=== PATIENT | female | born 1965 | race Caucasian/White ===

== ENCOUNTER 2021-02-13 12:57 | Emergency (ER) | payer OTHER, SELFPAY ==
--- NOTE | 2021-02-13 | ECG_ITS ---
Test Reason : CP Blood Pressure : / mmHG Vent. Rate : 071 BPM Atrial Rate : 071 BPM P-R Int : 198 ms QRS Dur : 094 ms QT Int : 408 ms P-R-T Axes : 062 005 035 degrees QTc Int : 443 ms Normal sinus rhythm Normal ECG No previous ECGs available Referred By: Generic ED Physician Electronically Signed By:ORAL COONEY MD
--- NOTE | ~2021-02-13 | XR_ITS ---
EXAMINATION: XR CHEST CLINICAL INFORMATION: Chest pain COMPARISON: July 06, 2019 TECHNIQUE: AP portable view of the chest was obtained. FINDINGS: No significant abnormality is noted involving the heart, lungs, mediastinum, bony thorax or soft tissues. There is calcific tendinitis of the right shoulder. XR/XR chest 1V IMPRESSION: No acute disease.
[2021-02-13 13:36] VITALS: BP 142/74; PULSE 66; RESP 18; TEMP 36.1; O2SAT 98; BMI 50.3
--- NOTE | 2021-02-13 14:29 | ED_ITS ---
HPI - Chest Pain General Chief Complaint: Chest Pain Stated Complaint: chest pain Time Seen by Provider: 02/13/21 14:28 Source: patient and family (Spouse) Mode of arrival: ambulatory Limitations: no limitations History of Present Illness HPI narrative: 56-year-old female came in for evaluation of chest pain. Chest pain started 4-5 days ago, patient is localized in the mid chest, feels like heaviness in the mid chest, with no radiation, pain is worse with exertion, better when she rest, pain is associated with numbness in left hand, no shortness of breath, no coughing, no chest trauma, no recent travel, no lower extremity swelling or tenderness. Related Data Allergies Allergy/AdvReac Type Severity Reaction Status Date / Time codeine [CODEINE] Allergy Intermediate PASSED Unverified 12/29/19 15:10 OUT , blacked out oxycodone [Percocet] Allergy Unknown Verified 05/05/13 00:00 acetaminophen [From PERCOCET] AdvReac Intermediate VOMITING Unverified 12/29/19 15:10 Codeine Sulfate Allergy Unknown Uncoded 05/05/13 00:00 flu shot Allergy Unknown vomiting Uncoded 05/05/13 00:00 and severe diarrhea imitrex Allergy Unknown Uncoded 05/05/13 00:00 LOCAL ANESTHETIC Allergy Unknown UNKNOWN. Uncoded 12/29/19 15:10 From PERCOCET AdvReac Intermediate VOMITING Uncoded 12/29/19 15:10 Review of Systems Review of Systems: All other systems are reviewed and are negative Constitutional: Reports as per HPI and Reports no additional constitutional complaints Eyes: Reports as per HPI and Reports no additional eye complaints Reports system reviewed and no additional complaints, except as documented Cardiovascular: Reports as per HPI and Reports no additional cardiovascular complaints Respiratory: Reports as per HPI and Reports no additional respiratory complaints Gastrointestinal: Reports as per HPI and Reports no additional gastrointestinal complaints Genitourinary: Reports no additional female genitourinary complaints Musculoskeletal: Reports no additional musculoskeletal complaints Skin/Breast: Reports system reviewed and no additional complaints, except as docu Psychiatric: Reports no additional psychiatric complaints Endocrine: Reports no additional endocrine complaints Hematologic/Lymphatic: Reports no additional hematologic/lymphatic complaints Allergic/Immunologic: Reports no additional allergic/immunologic complaints Reports system reviewed and no additional complaints, except as documented and Reports Abnormal speech present [facility] Social History Social History Patient Tobacco Use Status: Current everyday Tobacco user Advance Directives: No Advance Directives Information Provided: No Physical Exam 2 Vital Signs: Vital Signs: Last Vital Signs Temp 97 F 02/13/21 13:36 Pulse 66 02/13/21 13:36 Resp 18 02/13/21 13:36 BP 142/74 H 02/13/21 13:36 Pulse Ox 98 02/13/21 13:36 Body Mass Index 50.3 Vital signs have been reviewed as appeared to be correct. Blood pressure normal. Heart rate normal. Respiration rate normal. Temperature normal. Oxygen saturation normal. Appearance: Alert. Oriented X3. No acute distress. Head: Normal external exam. Normocephalic. Atraumatic. No Pool signs noted. No raccoon eyes noted Eyes: PERRLA. EOMI. Conjunctiva and sclera normal. Eyelids normal. ENT: TM's Normal. Pharynx normal. Uvula midline. Moist mucous membranes. No trismus noted. No drooling noted. No muffled voice noted. Neck: Normal inspection. Neck supple. FROM. No adenopathy. Thyroid Normal. No meningeal signs. No neck mass noted. CVS: Normal heart rate and rhythm. Heart sound normal. No murmurs noted. Pulses normal throughout. Respiratory: No respiratory distress. Painless inspiration. Breath sounds normal. No wheezes/rales/rhonchi noted. Chest nontender. No accessory muscle usage noted or decreased air movement noted. Abdomen: Soft and nontender. Bowel sounds normal in all 4 quadrants. No distention noted. No organomegaly noted. No visible injury noted. Back: No CVA tenderness. Full range of motion noted. Skin: Skin warm and dry. Normal skin color. Normal skin turgor. No rashes/lesions/lacerations noted. Extremities: No lower extremity edema. Extremities exhibit normal range of motion. Extremities nontender. Neuro: Oriented X 3. Cranial nerve exam: II-XII are grossly intact No motor deficit. No sensory deficit. Reflexes normal. Course Course Course Narrative: Assessment and plan. 56-year-old female came in for chest pain for 4 days, EKG, troponin, D-dimer are all are unremarkable, patient with HEART score of 1, patient has no chest pain or shortness breath now will discharge to follow-up with PCP to [facility] - Chest Pain Medical Records Data Attestation: I reviewed the patient's medical records. Lab Data Attestation: I reviewed the patient's lab results. Result diagrams: 02/13/21 14:33 02/13/21 14:33 Labs: Lab Results 02/13/21 02/13/21 02/13/21 Range/Units 14:33 14:33 14:33 WBC 6.6 (4.8-10.8) X10*3/uL RBC 3.68 L (4.20-5.50) X10*6/uL Hgb 12.2 (12.0-16.0) g/dl Hct 36.1 L (37.0-47.0) % MCV 98.1 H (80.0-98.0) fL MCH 33.2 H (27.0-33.0) pg MCHC 33.8 (31.0-35.0) g/dl RDW 12.2 (11.0-16.0) % Plt Count 236 (160-400) X10*3/uL MPV 8.8 L (9.4-12.3) fL Immature Gran % (Auto) 0.2 (0.0-0.4) % Neut % (Auto) 48.3 (45-73) % Lymph % (Auto) 38.1 (20-40) % [place] % (Auto) 5.4 (2-11) % Eos % (Auto) 7.4 H (0-4) % Baso % (Auto) 0.6 (0-2) % Lymph # (Auto) 2.5 (1.2-4.9) X10*3/uL [place] # (Auto) 0.4 (0.1-1.2) X10*3/uL Eos # (Auto) 0.5 H (0.0-0.4) X10*3/uL Baso # (Auto) 0.0 (0.0-0.2) X10*3/uL Abs Immat Gran (auto) 0.01 (0.00-0.03) X10*3/uL Absolute Neuts (auto) 3.21 (2.0-8.3) x10*3/uL Absolute Nucleated RBC 0.000 (0.0-0.012) X10*3/uL Nucleated RBC % (auto) 0.0 (0.0-0.2) /100WBC D-Dimer < 200 NG/ML Sodium 140 (135-145) mmol/L Potassium 4.0 (3.3-5.1) mmol/L Chloride 106 (96-108) mmol/L Carbon Dioxide 25 (22-29) mmol/L Anion Gap 13 (12-20) BUN 17 H (9-16) mg/dL Creatinine 0.83 (0.5-1.4) mg/dL Estim Creat Clear Calc 88.5 Estimated GFR > 60 Random Glucose 92 (60-115) mg/dL Calcium 9.7 (8.4-10.2) mg/dL Total Bilirubin 0.2 (0.0-1.0) mg/dL Direct Bilirubin < 0.2 (0.0-0.5) mg/dL AST 18 (5-31) U/L ALT 18 (0-31) U/L Alkaline Phosphatase 82 (39-117) U/L Troponin I High Sens (<3.5-17.0) ng/L Total Protein 7.4 (6.5-8.0) g/dL Albumin 4.9 (3.5-5.0) g/dL Lipase 25 (8-78) U/L 02/13/21 Range/Units 14:33 WBC (4.8-10.8) X10*3/uL RBC (4.20-5.50) X10*6/uL Hgb (12.0-16.0) g/dl Hct (37.0-47.0) % MCV (80.0-98.0) fL MCH (27.0-33.0) pg MCHC (31.0-35.0) g/dl RDW (11.0-16.0) % Plt Count (160-400) X10*3/uL MPV (9.4-12.3) fL Immature Gran % (Auto) (0.0-0.4) % Neut % (Auto) (45-73) % Lymph % (Auto) (20-40) % [place] % (Auto) (2-11) % Eos % (Auto) (0-4) % Baso % (Auto) (0-2) % Lymph # (Auto) (1.2-4.9) X10*3/uL [place] # (Auto) (0.1-1.2) X10*3/uL Eos # (Auto) (0.0-0.4) X10*3/uL Baso # (Auto) (0.0-0.2) X10*3/uL Abs Immat Gran (auto) (0.00-0.03) X10*3/uL Absolute Neuts (auto) (2.0-8.3) x10*3/uL Absolute Nucleated RBC (0.0-0.012) X10*3/uL Nucleated RBC % (auto) (0.0-0.2) /100WBC D-Dimer NG/ML Sodium (135-145) mmol/L Potassium (3.3-5.1) mmol/L Chloride (96-108) mmol/L Carbon Dioxide (22-29) mmol/L Anion Gap (12-20) BUN (9-16) mg/dL Creatinine (0.5-1.4) mg/dL Estim Creat Clear Calc Estimated GFR Random Glucose (60-115) mg/dL Calcium (8.4-10.2) mg/dL Total Bilirubin (0.0-1.0) mg/dL Direct Bilirubin (0.0-0.5) mg/dL AST (5-31) U/L ALT (0-31) U/L Alkaline Phosphatase (39-117) U/L Troponin I High Sens < 3.5 (<3.5-17.0) ng/L Total Protein (6.5-8.0) g/dL Albumin (3.5-5.0) g/dL Lipase (8-78) U/L Imaging Data Chest x-ray: Radiologist's impression: No acute disease. ECG Data ECG #1: Interpretation: Normal sinus rhythm at 71 beats per minutes, left axis deviation, normal intervals, no ST-T changes. Discharge Plan Discharge Clinical Impression: Atypical chest pain Patient Disposition: Home, Self-Care Instructions: Chest Pain (ED) Referrals: Jn Olson PA [Primary Care Provider] - 2 days
[2021-02-13 14:36] LABS: MANUAL DIFF FLAG NO
[2021-02-13 14:38] LABS: Basophils Percent Auto 0.6 % (0-2); Eosinophils Absolute Auto 0.5 X10*3/uL (0.0-0.4); Eosinophils Percent Auto 7.4 % (0-4); Hematocrit 36.1 % (37.0-47.0); Hemoglobin 12.2 g/dl (12.0-16.0); Imm Gran Abs Auto 0.01 X10*3/uL (0.00-0.03); Imm Gran Pct Auto 0.2 % (0.0-0.4); Lymphocytes Absolute Auto 2.5 X10*3/uL (1.2-4.9); Lymphocytes Percent Auto 38.1 % (20-40); Mean Corpuscular HGB Conc 33.8 g/dl (31.0-35.0); Mean Corpuscular Hemoglobin 33.2 pg (27.0-33.0); Mean Corpuscular Volume 98.1 fL (80.0-98.0); Mean Platelet Volume 8.8 fL (9.4-12.3); Monocytes Absolute Auto 0.4 X10*3/uL (0.1-1.2); Monocytes Percent Auto 5.4 % (2-11); Neutrophils Absolute Auto 3.21 x10*3/uL (2.0-8.3); Neutrophils Percent Auto 48.3 % (45-73); Platelet Count 236 X10*3/uL (160-400); Red Blood Count 3.68 X10*6/uL (4.20-5.50); Red Cell Distribution Width 12.2 % (11.0-16.0); White Blood Count 6.6 X10*3/uL (4.8-10.8)
[2021-02-13 14:53] LABS: Alanine Aminotransferase 18 U/L (0-31); Albumin Level 4.9 g/dL (3.5-5.0); Alkaline Phosphatase 82 U/L (39-117); Anion Gap 13 (12-20); Aspartate Amino Transferase 18 U/L (5-31); Bilirubin Direct < 0.2 mg/dL (0.0-0.5); Bilirubin Total 0.2 mg/dL (0.0-1.0); Blood Urea Nitrogen 17 mg/dL (9-16); Calcium 9.7 mg/dL (8.4-10.2); Carbon Dioxide 25 mmol/L (22-29); Chloride 106 mmol/L (96-108); Creatinine Clr Calc Pharmacy 88.5; Estimated Glomerular Filt Rate > 60; Glucose Random 92 mg/dL (60-115); Lipase 25 U/L (8-78); Sodium 140 mmol/L (135-145); Total Protein 7.4 g/dL (6.5-8.0)
[2021-02-13 14:57] LABS: Troponin-I High Sensitivity < 3.5 ng/L (<3.5-17.0)
[2021-02-13 14:59] LABS: D Dimer < 200 NG/ML
== END 2021-02-13 15:26 | disposition home or self-care (01) ==
PROVIDERS: Emergency Provider Emergency Medicine; PCP Physician Assistant Medical
DX: R07.89 Other chest pain (principal)
CPT/HCPCS: 36415; 71045; 80048; 80076; 83690; 84484; 85025; 85379; 93005; 99283; 99285

== ENCOUNTER 2022-12-05 12:30 | Outpatient (AMB) | payer OTHER, SELFPAY ==
--- NOTE | 2022-12-05 12:38 | MHC.OFFWIV ---
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 Pt states no falls or injuries. Patient Tobacco Use Status: Current everyday Tobacco user Allergies codeine [CODEINE] Allergy (Intermediate, Unverified 12/05/22 12:59) PASSED OUT , blacked out oxycodone [Percocet] Allergy (Unknown, Verified 12/05/22 12:59) Anxiety acetaminophen [From PERCOCET] Adverse Reaction (Intermediate, Unverified 12/05/22 12:59) VOMITING Codeine Sulfate Allergy (Unknown, Uncoded 12/05/22 12:59) Anxiety flu shot Allergy (Unknown, Uncoded 12/05/22 12:59) vomiting and severe diarrhea imitrex Allergy (Unknown, Uncoded 12/05/22 12:59) Anxiety LOCAL ANESTHETIC Allergy (Unknown, Uncoded 12/05/22 12:59) UNKNOWN. 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 Patient is reporting pain in the right leg and not the left. Symptoms started a few days ago and she is experiencing sharp pains in the right thigh. Does not recall any fall or injury. 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 [facility] Social History Patient Tobacco Use Status: Current everyday Tobacco user Physical Exam Vital Signs: Last Vital Signs Temp 96.7 F L 12/05/22 12:40 Pulse 75 12/05/22 12:40 BP 116/70 12/05/22 12:40 Pulse Ox 98 12/05/22 12:40 Oxygen Delivery Method Room Air 12/05/22 12:40 BMI result Body Mass Index 33.0 Const General: cooperative and healthy appearing Nutritional Appearance: well nourished Orientation/consciousness: patient oriented x3 Limitations: no limitations HEENT Head: Yes normal to inspection Eyes General: appearance normal, both eyes and all related structures Neck Neck: Yes normal visual inspection Chest Chest palpation & inspection: normal palpation of entire chest wall Resp Effort & Inspection: normal respiratory effort Neuro General: patient oriented x3 Extrem Other: Right hip: Tenderness over the greater trochanter. Full range of motion at the hip. Assessment & Plan Assessment & Plan (1) Trochanteric bursitis, right hip: Code(s): M70.61 - Trochanteric bursitis, right hip Plan: Meloxicam called in. Patient was advised rest of the extremity. Medications: New meloxicam 15 mg PO DAILY 14 tabs 0RF Coding Level of Care Code New Pt Level 3 (73750) Diagnoses Trochanteric bursitis, right hip M70.61
[2022-12-05 12:40] VITALS: BP 116/70; PULSE 75; TEMP 35.9; O2SAT 98; BMI 33.0
== END 2022-12-05 13:37 | disposition home or self-care (01) ==
PROVIDERS: PCP Physician Assistant Medical; Visit Provider Internal Medicine
DX: M70.61 Trochanteric bursitis, right hip (principal)
CPT/HCPCS: 99203

== ENCOUNTER 2024-08-12 16:34 | Emergency (ER) | payer OTHER, SELFPAY ==
--- NOTE | ~2024-08-12 | XR_ITS ---
CLINICAL HISTORY: chest pain 1 view chest x-ray Comparison: None Findings: No consolidation, pleural effusion or pneumothorax. Normal size heart. No acute fracture. IMPRESSION: 1. No acute findings. This document has been electronically signed by: Lucille Rosenbaum DO on 08/12/2024 17:41:56
[2024-08-12 16:38] VITALS: BP 117/76; BP 123/67; PULSE 77; PULSE 84; RESP 18; TEMP 36.8; O2SAT 98; O2SAT 99; BMI 30.3
--- NOTE | 2024-08-12 16:38 | ECG_ITS ---
Test Reason : CP Blood Pressure : */* mmHG Vent. Rate : 76 BPM Atrial Rate : 76 BPM P-R Int : 196 ms QRS Dur : 78 ms QT Int : 406 ms P-R-T Axes : 71 -11 32 degrees QTcB Int : 456 ms Normal sinus rhythm Low voltage QRS Septal infarct , age undetermined Abnormal ECG When compared with ECG of 13-Feb-2021 13:43, Septal infarct is now Present Referred By: Generic ED Physician Electronically Signed By: Tai Lima
[2024-08-12 16:51] LABS: MANUAL DIFF FLAG NO
[2024-08-12 16:55] LABS: Basophils Absolute Auto 0.1 X10*3/uL (0.0-0.2); Basophils Percent Auto 1.2 % (0-2); Eosinophils Absolute Auto 0.3 X10*3/uL (0.0-0.4); Eosinophils Percent Auto 5.6 % (0-4); Hematocrit 36.1 % (37.0-47.0); Hemoglobin 12.5 g/dl (12.0-16.0); Imm Gran Abs Auto 0.01 X10*3/uL (0.00-0.03); Imm Gran Pct Auto 0.2 % (0.0-0.4); Lymphocytes Absolute Auto 2.6 X10*3/uL (1.2-4.9); Lymphocytes Percent Auto 44.2 % (20-40); Mean Corpuscular HGB Conc 34.6 g/dl (31.0-35.0); Mean Corpuscular Hemoglobin 32.7 pg (27.0-33.0); Mean Corpuscular Volume 94.5 fL (80.0-98.0); Mean Platelet Volume 8.6 fL (9.4-12.3); Monocytes Absolute Auto 0.4 X10*3/uL (0.1-1.2); Monocytes Percent Auto 5.9 % (2-11); Neutrophils Absolute Auto 2.6 x10*3/uL (2.0-8.3); Neutrophils Percent Auto 42.9 % (45-73); Platelet Count 233 X10*3/uL (160-400); Red Blood Count 3.82 X10*6/uL (4.20-5.50); Red Cell Distribution Width 12.7 % (11.0-16.0); White Blood Count 5.9 X10*3/uL (4.8-10.8)
[2024-08-12 17:12] LABS: Alanine Aminotransferase 16 U/L (0-31); Albumin Level 4.1 g/dL (3.5-5.0); Alkaline Phosphatase 86 U/L (39-117); Anion Gap 13 (12-20); Aspartate Amino Transferase 23 U/L (5-31); Bilirubin Total 0.7 mg/dL (0.0-1.0); Blood Urea Nitrogen 12 mg/dL (9-16); Calcium 9.4 mg/dL (8.4-10.2); Carbon Dioxide 23 mmol/L (22-29); Chloride 106 mmol/L (96-108); Creatinine Clr Calc Pharmacy 76.8; Estimated Glomerular Filt Rate > 60; Glucose Random 85 mg/dL (60-115); Potassium 3.9 mmol/L (3.3-5.1); Sodium 138 mmol/L (135-145); Total Protein 6.4 g/dL (6.5-8.0)
[2024-08-12 17:31] LABS: Troponin-I High Sensitivity < 2.7 ng/L (<3.5-17.0)
--- NOTE | 2024-08-12 18:32 | ED_ITS ---
HPI - Chest Pain General Chief Complaint: Chest Pain Stated Complaint: chest pain for 8 hrs, crushing/fluttering feeling Time Seen by Provider: 08/12/24 18:32 History of Present Illness ED Provider: Edi MURO narrative: The patient is a 59-year-old woman. She is a smoker and she has a history of elevated cholesterol but she has no history of diabetes or hypertension. She says that several weeks ago she had an episode in which he experienced chest discomfort and an ambulance was called. At that time she had had chest discomfort for about 3 days. When the paramedics came her vital signs are unremarkable and she ultimately chose not to come to the hospital. She did not follow up with anybody. She says that she woke up this morning with chest pain that was very similar to the pain that she had had during the episode several weeks ago. She thought that it was bad heartburn. She went to work. 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 She went to an urgent care where she was referred to the emergency department. They called an ambulance. Paramedics administered 0.4 mg of sublingual nitro with resolution of her symptoms. The symptoms have not returned. She says the symptoms of chest discomfort were a nonpleuritic burning or pressure-like chest discomfort, slightly more in the left side. It was also associated with a fluttering sensation and a sense of some mild shortness of breath. No pain or swelling in her legs. No fever, sweats, chills. While she was having the pain she had some nausea but no vomiting. Her nausea has resolved as has her sense of shortness of breath and fluttering. Related Data Home Medications ?Medication ?Instructions ?Recorded ?Confirmed evolocumab 140 mg/mL subcutaneous 140 mg subcut Q2W 12/05/22 pen injector (Repatha SureClick) fluticasone propionate 115 2 puff inhalation BID 12/05/22 mcg-salmeterol 21 mcg/actuation HFA inhaler (Advair HFA) fluticasone propionate 50 1 spray intranasal DAILY 12/05/22 mcg/actuation nasal spray,suspension ramelteon 8 mg tablet (Rozerem) 8 mg PO BEDTIME 12/05/22 Previous Rx's ?Medication ?Instructions ?Recorded meloxicam 15 mg tablet 15 mg PO DAILY #14 tabs 12/05/22 Allergies Allergy/AdvReac Type Severity Reaction Status Date / Time codeine [CODEINE] Allergy Intermediate PASSED Verified 08/12/24 16:40 OUT , blacked out oxycodone [Percocet] Allergy Unknown Anxiety Verified 08/12/24 16:40 acetaminophen [From PERCOCET] AdvReac Intermediate VOMITING Verified 08/12/24 16:40 Codeine Sulfate Allergy Unknown Anxiety Uncoded 08/12/24 16:40 flu shot Allergy Unknown vomiting Uncoded 08/12/24 16:40 and severe diarrhea imitrex Allergy Unknown Anxiety Uncoded 08/12/24 16:40 LOCAL ANESTHETIC Allergy Unknown UNKNOWN. Uncoded 08/12/24 16:40 From PERCOCET AdvReac Intermediate VOMITING Uncoded 08/12/24 16:40 Review of Systems 2 Review of Systems: Yes all other systems are reviewed and are negative [facility] Social History Social History Patient Tobacco Use Status: Current everyday Tobacco user Advance Directives: No Advance Directives Information Provided: No Do you have a plan to hurt others: No Plan Physical Exam 2 Vital Signs: Vital Signs: Last Vital Signs Temp 98.0 F 08/12/24 19:19 Pulse 89 08/12/24 19:19 Resp 14 08/12/24 19:19 BP 113/72 08/12/24 19:19 Pulse Ox 96 08/12/24 19:19 O2 Del Method Room Air 08/12/24 19:19 BMI result Body Mass Index 30.3 Const: General: cooperative, healthy appearing, comfortable and no acute distress Orientation/consciousness: patient oriented x3 HEENT: Head: Yes normal to inspection Face and sinus: Yes normal facial exam Mouth: Normal oral and palatal mucosa present Eyes: General: appearance normal, both eyes and all related structures Neck: Neck: Yes normal visual inspection, Yes full ROM and Yes no JVD Resp: Effort & Inspection: normal respiratory effort Auscultation: clear to auscultation bilaterally Cardio: Rate: regular rate Rhythm: regular rhythm Heart sounds: S1 normal heart sound present and S2 normal heart sound present GI: Other: the abdomen was soft and nontender. Specifically there was no right upper quadrant tenderness. No Chin sign. Skin: Other: Skin is dry and unremarkable Neuro: General: patient oriented x3, gait normal, tone normal, moves all extremities, no focal motor deficits and CN's II-XI intact bilaterally Extrem: Other: no ankle edema, no calf swelling or tenderness, no asymmetry Medical Decision Making Medical Decision Making MDM Narrative: The patient is a 59-year-old woman. She has a history of smoking and elevated cholesterol but no history of diabetes or hypertension. No history of known heart disease. She comes to the emergency room after presenting to urgent care center with chest pain. The urgent care center called an ambulance and she was sent here. Paramedics administered a dose of nitroglycerin and there was resolution of her discomfort. She was pain-free at the time of arrival in the emergency room and at the time of my evaluation. She had been experiencing nonpleuritic a pressure-like chest pain since yesterday evening. She has certainly had continuous chest pressure from 7 or 8 AM this morning until this afternoon. she has an unremarkable EKG. She has 2 negative troponins. The patient was very eager to leave the emergency room and was in fact discharged prior to the results of the 2nd troponin. She did not want to stay in the emergency room because she said she had a special needs child to get back to. The patient says that she had a similar episode several weeks ago when she called an ambulance but declined ambulance transport. My overall impression is that this is probably non anginal pain given that she has so many hours of discomfort with undetectable troponins. I called the patient after her discharge to inform her that her 2nd troponin was normal. She was advised to contact her doctor on Thursday for a follow-up appointment to discuss this further or to return to the ER if worse. Lab Data 08/12/24 16:48 08/12/24 16:48 Labs: Lab Results 08/12/24 08/12/24 Range/Units 16:48 19:11 WBC 5.9 (4.8-10.8) X10*3/uL RBC 3.82 L (4.20-5.50) X10*6/uL Hgb 12.5 (12.0-16.0) g/dl Hct 36.1 L (37.0-47.0) % MCV 94.5 (80.0-98.0) fL MCH 32.7 (27.0-33.0) pg MCHC 34.6 (31.0-35.0) g/dl RDW 12.7 (11.0-16.0) % Plt Count 233 (160-400) X10*3/uL MPV 8.6 L (9.4-12.3) fL Immature Gran % (Auto) 0.2 (0.0-0.4) % Neut % (Auto) 42.9 L (45-73) % Lymph % (Auto) 44.2 H (20-40) % [place] % (Auto) 5.9 (2-11) % Eos % (Auto) 5.6 H (0-4) % Baso % (Auto) 1.2 (0-2) % Lymph # (Auto) 2.6 (1.2-4.9) X10*3/uL [place] # (Auto) 0.4 (0.1-1.2) X10*3/uL Eos # (Auto) 0.3 (0.0-0.4) X10*3/uL Baso # (Auto) 0.1 (0.0-0.2) X10*3/uL Abs Immat Gran (auto) 0.01 (0.00-0.03) X10*3/uL Absolute Neuts (auto) 2.6 (2.0-8.3) x10*3/uL Absolute Nucleated RBC 0.000 (0.0-0.012) X10*3/uL Nucleated RBC % (auto) 0.0 (0.0-0.2) /100WBC Sodium 138 (135-145) mmol/L Potassium 3.9 (3.3-5.1) mmol/L Chloride 106 (96-108) mmol/L Carbon Dioxide 23 (22-29) mmol/L Anion Gap 13 (12-20) BUN 12 (9-16) mg/dL Creatinine 0.69 (0.5-1.4) mg/dL Estim Creat Clear Calc 76.8 Estimated GFR > 60 Random Glucose 85 (60-115) mg/dL Calcium 9.4 (8.4-10.2) mg/dL Magnesium 2.0 (1.6-2.6) mg/dL Total Bilirubin 0.7 (0.0-1.0) mg/dL AST 23 (5-31) U/L ALT 16 (0-31) U/L Alkaline Phosphatase 86 (39-117) U/L Troponin I High Sens < 2.7 < 2.7 (<3.5-17.0) ng/L Total Protein 6.4 L (6.5-8.0) g/dL Albumin 4.1 (3.5-5.0) g/dL Independent Interpretation I performed an independent interpretation of an: EKG Interpretation: EKG at 16:54 shows normal sinus rhythm at 76 beats per minute. No definite acute ischemic changes. Discharge Plan Discharge Clinical Impression: Chest pain Patient Disposition: Home, Self-Care Instructions: Chest Pain (ED) Additional Instructions: Your testing so far in the emergency room is very reassuring from the point of view of whether your chest pain was a warning of a heart attack. Your initial troponin level (troponin is a marker of a heart attack) was normal. We have sent a 2nd troponin level to help confirm that your symptoms were not coming from your heart. I will call you if this result is abnormal. Assuming the troponin is fine please continue any regular medications. Please contact your regular doctor on Thursday to make a follow up appointment to discuss these episodes further. Return to the emergency room if you feel significantly worse. Prescriptions: No Action Repatha SureClick 140 mg/mL pen injector 140 mg subcut Q2W fluticasone propionate 50 mcg/actuation spray,suspension 1 spray intranasal DAILY fluticasone propion-salmeterol [Advair HFA] 115-21 mcg/actuation HFA aerosol inhaler 2 puff inhalation BID ramelteon [Rozerem] 8 mg tablet 8 mg PO BEDTIME meloxicam 15 mg tablet 15 mg PO DAILY Qty: 14 0RF Referrals: Jn Olson PA [Primary Care Provider] - (Chest pain) Interventions: ED Discharge Assessment Last Done: 08/12/24 19:19 Discharge Date/Time: 08/12/24 19:21 Print Language: Hungarian
[2024-08-12 19:19] VITALS: BP 113/72; PULSE 89; RESP 14; TEMP 36.7; O2SAT 96
[2024-08-12 19:35] LABS: Troponin-I High Sensitivity < 2.7 ng/L (<3.5-17.0)
== END 2024-08-12 19:21 | disposition home or self-care (01) ==
PROVIDERS: Emergency Provider Emergency Medicine; PCP Physician Assistant Medical
DX: R07.9 Chest pain, unspecified (principal); F17.200 Nicotine dependence, unspecified, uncomplicated; Z79.899 Other long term (current) drug therapy
CPT/HCPCS: 36415; 71045; 80053; 83735; 84484; 85025; 93005; 99283; 99284

== ENCOUNTER → 2024-08-12 16:38 | Outpatient (BNV) | payer OTHER, SELFPAY | PROVIDERS: Emergency Provider Emergency Medicine; PCP Physician Assistant Medical; Visit Provider Internal Medicine Cardiovascular Disease | DX: R94.31 Abnormal electrocardiogram [ECG] [EKG] (principal); R07.9 Chest pain, unspecified | CPT/HCPCS: 93010 ==

== ENCOUNTER → 2024-08-12 17:15 | Outpatient (BNV) | payer OTHER, SELFPAY | PROVIDERS: PCP Physician Assistant Medical; Visit Provider Radiology Diagnostic Radiology | DX: R07.9 Chest pain, unspecified (principal) | CPT/HCPCS: 71045 ==

== ENCOUNTER 2024-12-18 07:21 | Emergency (ER) | payer OTHER, SELFPAY ==
--- NOTE | ~2024-12-18 | CT_ITS ---
CLINICAL HISTORY: headache CT head without contrast Comparison: None provided Findings: No intra-axial mass, midline shift, hydrocephalus, or acute hemorrhage. There is no sinus or mastoid fluid. Right cataract surgery. Mild asymmetric prominence of the left superior ophthalmic vein of indeterminate significance/possibly incidental. No skull fracture. IMPRESSION: 1. No acute intracranial findings. This document has been electronically signed by: Rima Glass MD on 12/18/2024 10:19:20
[2024-12-18 07:25] VITALS: BP 118/76; PULSE 74; O2SAT 99
[2024-12-18 07:29] VITALS: BP 123/55; PULSE 72; RESP 20; TEMP 36.5; O2SAT 98; BMI 24.9
--- NOTE | 2024-12-18 07:31 | ECG_ITS ---
Test Reason : WEAKNESS Blood Pressure : */* mmHG Vent. Rate : 71 BPM Atrial Rate : 71 BPM P-R Int : 178 ms QRS Dur : 84 ms QT Int : 430 ms P-R-T Axes : 80 42 42 degrees QTcB Int : 467 ms Normal sinus rhythm Pulmonary disease pattern Abnormal ECG When compared with ECG of 12-Aug-2024 16:54, Criteria for Septal infarct are no longer Present Referred By: Ted Knapp Electronically Signed By: JH MA MD
--- NOTE | 2024-12-18 07:31 | ED_ITS ---
HPI - Headache General Chief Complaint: Dizziness Stated Complaint: NAUSEA/VOMTING,LUE NUMB THIS AM,H/O BRAIN TUMOR Time Seen by Provider: 12/18/24 07:29 Source: patient and EMS Mode of arrival: EMS Limitations: no limitations History of Present Illness ED Provider: HPI Narrative: 59-year-old woman reports history of schwannoma, denies history of headaches, states woke up with a significantly headache that was 10/10 on onset, reports dizziness, inability to really look with her eyes because it would make her nauseous, no trauma no fevers or chills, no IV drug use, smokes tobacco. No numbness in upper or lower extremities. Related Data Home Medications ?Medication ?Instructions ?Recorded ?Confirmed evolocumab 140 mg/mL subcutaneous 140 mg subcut Q2W pen injector (Repatha SureClick) fluticasone propionate 115 2 puff inhalation BID 12/05 mcg-salmeterol 21 mcg/actuation HFA inhaler (Advair HFA) fluticasone propionate 50 1 spray intranasal DAILY mcg/actuation nasal spray,suspension ramelteon 8 mg tablet (Rozerem) 8 mg PO BEDTIME Previous Rx's ?Medication ?Instructions ?Recorded meloxicam 15 mg tablet 15 mg PO DAILY #14 tabs 11/12 09/02 diazepam 2 mg tablet (Valium) 2 mg PO TID PRN spasms 2 days #6 12/18/24 tabs ondansetron HCl 4 mg tablet 4 mg PO Q8H PRN nausea and 12/18/24 vomiting 3 days #9 tabs Allergies Allergy/AdvReac Type Severity Reaction Status Date / Time codeine (CODEINE) Allergy Intermediate PASSED Verified 12/18/24 07:33 OUT , blacked out oxycodone (Percocet) Allergy Unknown Anxiety Verified 12/18/24 07:33 acetaminophen (From PERCOCET) AdvReac Intermediate VOMITING Verified 12/18/24 07:33 Codeine Sulfate Allergy Unknown Anxiety Uncoded 12/18/24 07:33 flu shot Allergy Unknown vomiting Uncoded 12/18/24 07:33 and severe diarrhea imitrex Allergy Unknown Anxiety Uncoded 12/18/24 07:33 LOCAL ANESTHETIC Allergy Unknown UNKNOWN. Uncoded 12/18/24 07:33 From PERCOCET AdvReac Intermediate VOMITING Uncoded 12/18/24 07:33 Review of Systems 2 Constitutional: Constitutional: Reports as per [facility] Social History Social History Patient Tobacco Use Status: Current everyday Tobacco user Smoked in Last 30 Days: Yes Use of substances other than those prescribed or required for medical reasons: No Advance Directives: No Advance Directives Information Provided: Yes Do you have a plan to hurt others: No Plan Physical Exam 2 Vital Signs: Vital Signs: Last Vital Signs Temp 97.7 F 12/18/24 07:34 Pulse 68 12/18/24 10:19 Resp 16 12/18/24 10:19 BP 107/44 L 12/18/24 10:19 Pulse Ox 95 12/18/24 10:19 O2 Del Method Room Air 12/18/24 10:19 BMI result Body Mass Index 24.9 Const: Other: * Gen: ?Patient is in discomfort * HEENT: Pupils appear to be 2 mm, reactive, patient was not able to participate in nystagmus checking as she would get very nauseous * Neck: Supple, no LAD, no meningismus * CV: RRR, no obvious murmurs appreciated * Resp: ?No wheezing rales rhonchi no stridor moving air well * Abd: ?Bowel sounds are present, no tenderness no rebound no rigidity * MSK: FROM, strength 5/5 all extremities * Skin: Warm, dry, intact, * Neuro: ?Alert and oriented x3, moving upper and lower extremities symmetrically, no obvious facial asymmetry noted, generally at bedside no sensory deficits bilateral upper or lower extremities Medications Administered Discontinued Medications Generic Name Dose Route Start Last Admin Trade Name Freq PRN Reason Stop Dose Admin Diazepam 5 mg 12/18/24 07:31 12/18/24 07:50 Diazepam 10 Mg/2 Ml Cartridge IVPUSH 12/18/24 07:32 5 mg STAT STA Administration Sodium Chloride 1,000 mls @ 999 mls/hr 12/18/24 07:45 12/18/24 09:30 Ns IV 12/18/24 08:45 Infused .Q1H1M KATERYNA Infusion Acetaminophen 1,000 mg in 100 mls @ 400 mls/hr 12/18/24 07:31 12/18/24 08:05 Ofirmev IV 12/18/24 07:45 Infused ONCE ONE Infusion Ketorolac Tromethamine 15 mg 12/18/24 09:16 12/18/24 09:39 Ketorolac Tromethamine 15 Mg/Ml Vial IVPUSH 12/18/24 09:17 15 mg ONCE ONE Administration Methylprednisolone Sodium Succinate 125 mg 12/18/24 07:31 12/18/24 07:50 Methylprednisolone Sod Succ 125 Mg/2 Ml Vial IVPUSH 12/18/24 07:32 125 mg ONCE ONE Administration Ondansetron HCl 4 mg 12/18/24 07:31 12/18/24 07:54 Ondansetron Hcl 4 Mg/2 Ml Vial IVPUSH 12/18/24 07:32 4 mg ONCE ONE Administration Scopolamine 1.5 mg 12/18/24 07:31 12/18/24 07:53 Scopolamine 1.5 Mg Patch.Td.3 EAR-BEHIND 12/18/24 07:32 1.5 mg ONCE ONE Administration Medical Decision Making Medical Decision Making MDM Narrative: Patient reports history of schwannoma, she is presenting with headache but also significant nausea or vomiting worse when she is moving her eyes, I suspect she has fairly advanced vertigo, general exam without asymmetry movement, and no genital sensory deficits but I will have to medicate her to improve symptoms and then we will re-evaluate, CT brain to evaluate for any masses, stroke unlikely but primarily to make sure this is not related to subarachnoid hemorrhage. CT brain noncontrast extremely sensitive to evaluate for atraumatic head bleeds, shared decision-making whether patient needs an LP to be determined after symptoms improve, at least at this time subarachnoid hemorrhage is not the highest on my differential. She woke up with a bad headache but this was not a a sudden onset of headache that woke her up from sleep. 8:59 AM 12/18/2024 (Dr. Ted Knapp): Patient reported 5/10 pain compared to 10/10 on presentation 10:51 AM 12/18/2024 (Dr. Ted Knapp): Patient feels even better still, CT brain negative, we will discharge On re-evaluation, pupils 3 mm bilaterally reactive, no corneal clouding, no dysmetria and at this point no nystagmus horizontal or vertical Differential Diagnosis Differential Diagnoses: The differential diagnosis associated with the presentation includes (BPPV, subarachnoid hemorrhage, cavernous venous thrombosis, stroke, dehydration, brain mass) Admission/Observation Consideration of admission/observation: Escalation of care including admission/observation considered 2022 Emergency Medicine Coding Guide from [email or web address] on 12/18/2024 All calculations should be rechecked by clinician prior to use RESULT SUMMARY: 5 Estimated Level of Service Problems: High (5) Risk: High (5) Data: Extensive (5) NARRATIVE MDM: This patient's problem complexity is High as patient: may have an acute or chronic illness/injury posing a threat to life or body function. This patient's risk is High due to: overall presentation requiring evaluation for a potentially High-risk process. This patient's data complexity is Extensive due to: -multiple tests ordered/reviewed -independent interpretation of imaging or EKG INPUTS: Number and Complexity ?> 2 = 5: illness/injury w/life or body threat (b) Risk level ?> 4 = High Tests ordered ?> 3 = >= Tests results reviewed (excluding labs) ?> 2 = 2 Prior external notes reviewed ?> 0 = 0 Assessment requiring and independent historian ?> 0 = No Independent interpretation of tests ?> 1 = Yes Discussed management/test interpretation w/external professional ?> 0 = No Lab Data [facility] Lab Attestation statement: I reviewed the patient's lab results. 12/18/24 07:44 12/18/24 07:44 Labs: Lab Results 12/18/24 12/18/24 Range/Units 07:44 09:29 WBC 6.6 (4.8-10.8) X10*3/uL RBC 3.92 L (4.20-5.50) X10*6/uL Hgb 13.4 (12.0-16.0) g/dl Hct 38.3 (37.0-47.0) % MCV 97.7 (80.0-98.0) fL MCH 34.2 H (27.0-33.0) pg MCHC 35.0 (31.0-35.0) g/dl RDW 12.8 (11.0-16.0) % Plt Count 251 (160-400) X10*3/uL MPV 8.9 L (9.4-12.3) fL Immature Gran % (Auto) 0.3 (0.0-0.4) % Neut % (Auto) 65.8 (45-73) % Lymph % (Auto) 23.4 (20-40) % [place] % (Auto) 4.4 (2-11) % Eos % (Auto) 5.2 H (0-4) % Baso % (Auto) 0.9 (0-2) % Lymph # (Auto) 1.5 (1.2-4.9) X10*3/uL [place] # (Auto) 0.3 (0.1-1.2) X10*3/uL Eos # (Auto) 0.3 (0.0-0.4) X10*3/uL Baso # (Auto) 0.1 (0.0-0.2) X10*3/uL Abs Immat Gran (auto) 0.02 (0.00-0.03) X10*3/uL Absolute Neuts (auto) 4.3 (2.0-8.3) x10*3/uL Absolute Nucleated RBC 0.000 (0.0-0.012) X10*3/uL Nucleated RBC % (auto) 0.0 (0.0-0.2) /100WBC Sodium 141 (135-145) mmol/L Potassium 4.5 (3.3-5.1) mmol/L Chloride 109 H (96-108) mmol/L Carbon Dioxide 23 (22-29) mmol/L Anion Gap 14 (12-20) BUN 16 (9-16) mg/dL Creatinine 0.66 (0.5-1.4) mg/dL Estim Creat Clear Calc 82.5 Estimated GFR > 60 Random Glucose 113 (60-115) mg/dL Calcium 9.2 (8.4-10.2) mg/dL Total Bilirubin 0.4 (0.0-1.0) mg/dL AST 24 (5-31) U/L ALT 18 (0-31) U/L Alkaline Phosphatase 96 (39-117) U/L C-Reactive Protein 0.12 (< or = 0.50) mg/dL Total Protein 6.7 (6.5-8.0) g/dL Albumin 4.4 (3.5-5.0) g/dL Urine Color Yellow Urine Appearance Clear Urine pH 8.5 (5.0-9.0) Ur Specific [place] 1.015 (1.005-1.025) Urine Protein Negative (Neg-Trace) mg/dL Urine Glucose (UA) Negative (Negative) mg/dL Urine Ketones Negative (Negative) mg/dL Urine Blood Negative (Negative) Urine Nitrite Negative (Negative) Ur Leukocyte Esterase Negative (Negative) Independent Interpretation I performed an independent interpretation of an: CT Scan (No obvious masses, or bleed, will administer Toradol awaiting official report) Radiology Impression Discussion of test interpretation with radiology: I have reviewed the radiologist's reading. (No acute intracranial findings) Independent Historian Clinical information obtained from an independent historian. History obtained from or confirmed by: EMS Prescription Management I considered prescription management with: Pain Medication Critical Care Time Critical Care Time Critical Care Time: Yes Total Critical Care Time: 35 Attestation: Time is exclusive of separately billable procedures. Time includes: direct patient care, patient reassessment, coordination of patient care, interpretation of data (laboratory data, pulse oximetry, arterial blood gases and chest xrays), review of patient's medical records, medical consultation and documentation of patient care. Procedures excluded from critical care time: central intravenous line placement and electrocardiography. Discharge Plan Discharge Clinical Impression: Bad headache, Vertigo Patient Disposition: Home, Self-Care Instructions: Acute Headache (ED) Additional Instructions: Stay well hydrated, Zofran as needed for nausea and vomiting, you can take Tylenol 975 mg every 6 hours around the clock for the next 2 days, with ibuprofen 400 mg intermittently for headache, Valium for nausea, vomiting and a headache, and meclizine for spinning sensation, keeps scopolamine patch in place for the next 3 days, follow up with the PCP worsening issues concerns come back to the ER Prescriptions: New diazepam [Valium] 2 mg tablet 2 mg PO TID PRN (Reason: spasms) 2 Days Qty: 6 0RF ondansetron HCl 4 mg tablet 4 mg PO Q8H PRN (Reason: nausea and vomiting) 3 Days Qty: 9 0RF No Action Repatha SureClick 140 mg/mL pen injector 140 mg subcut Q2W fluticasone propionate 50 mcg/actuation spray,suspension 1 spray intranasal DAILY fluticasone propion-salmeterol [Advair HFA] 115-21 mcg/actuation HFA aerosol inhaler 2 puff inhalation BID ramelteon [Rozerem] 8 mg tablet 8 mg PO BEDTIME meloxicam 15 mg tablet 15 mg PO DAILY Qty: 14 0RF Referrals: Jn Olson PA [Primary Care Provider, Internal Medicine] - 2 weeks Clinical Impression: Bad headache; Vertigo Print Language: Mexican
[2024-12-18 07:34] VITALS: BP 123/55; PULSE 72; RESP 20; TEMP 36.5; O2SAT 98
[2024-12-18 07:49] LABS: MANUAL DIFF FLAG NO
[2024-12-18 07:50] LABS: Hematocrit 38.3 % (37.0-47.0); Hemoglobin 13.4 g/dl (12.0-16.0); Imm Gran Abs Auto 0.02 X10*3/uL (0.00-0.03); Imm Gran Pct Auto 0.3 % (0.0-0.4); Lymphocytes Absolute Auto 1.5 X10*3/uL (1.2-4.9); Mean Corpuscular HGB Conc 35.0 g/dl (31.0-35.0); Mean Corpuscular Hemoglobin 34.2 pg (27.0-33.0); Mean Corpuscular Volume 97.7 fL (80.0-98.0); NRBC Abs Auto 0.000 X10*3/uL (0.0-0.012); NRBC Pct Auto 0.0 /100WBC (0.0-0.2); Platelet Count 251 X10*3/uL (160-400); Red Blood Count 3.92 X10*6/uL (4.20-5.50); White Blood Count 6.6 X10*3/uL (4.8-10.8)
[2024-12-18] MEDS: diazePAM 10 MG/2 ML CARTRIDGE 5 MG IVPUSH (07:50)
--- NOTE | 2024-12-18 08:01 | PC.NURSE ---
59 F with hx brain tumor presents to ED with 10/10 h/a, dizziness, n/v since this morning. Pt is A+Ox4, anxious but cooperative. RR even and unlabored, denies any CP or SOB, sts a little abdominal discomfort from vomitting but sts 10/10 headache.
[2024-12-18 08:08] LABS: Alanine Aminotransferase 18 U/L (0-31); Albumin Level 4.4 g/dL (3.5-5.0); Alkaline Phosphatase 96 U/L (39-117); Anion Gap 14 (12-20); Aspartate Amino Transferase 24 U/L (5-31); Blood Urea Nitrogen 16 mg/dL (9-16); Calcium 9.2 mg/dL (8.4-10.2); Carbon Dioxide 23 mmol/L (22-29); Chloride 109 mmol/L (96-108); Creatinine Clr Calc Pharmacy 82.5; Estimated Glomerular Filt Rate > 60; Potassium 4.5 mmol/L (3.3-5.1); Sodium 141 mmol/L (135-145); Total Protein 6.7 g/dL (6.5-8.0)
--- OUTSIDE RECORDS SUMMARY | 2024-12-18 08:38 | XMS_ITS | Clinical Summary ---
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 014 Active albuterol HFA (PROAIR HFA ; PROVENTIL HFA ; VENTOLIN HFA) 90 mcg/actuation inhaler Inhale 2 puffs by mouth. 023 Active azelastine (ASTELIN) 137 mcg (0.1 %) nasal spray Administer 2 sprays into affected nostril(s). 024 Active fluticasone propionate (FLONASE) 50 mcg/actuation nasal spray Administer 1 spray into affected nostril(s). 023 Active zolpidem CR (AMBIEN CR) 6.25 mg CR tablet Take 1 tablet (6.25 mg total) by mouth at bedtime as needed. 024 Active evolocumab (Repatha SureClick) 140 mg/mL pen injector injection Inject 1 mL (140 mg total) under the skin. 023 Active albuterol 2.5 mg /3 mL (0.083 %) nebulizer solution Take 1 Vial by nebulization every 4 hours as needed for Wheezing. Active albuterol HFA (PROVENTIL HFA;VENTOLIN HFA) 108 (90 Base) MCG/ACT inhaler Inhale 2 Puffs into the lungs every 6 hours as needed for Cough, Wheezing or Shortness of Breath. Active azelastine (ASTELIN) 137 mcg (0.1 %) nasal spray 2 Sprays by Each Nare route 2 times daily. Use in each nostril as directed Active fluticasone propionate (FLONASE) 50 mcg/actuation nasal spray 1 Cable by Nasal route daily. Active montelukast (SINGULAIR) 10 mg tablet Take 1 Tablet by mouth at bedtime. Active evolocumab (Repatha SureClick) 140 mg/mL pen injector injectionIndications:Ro utine general medical examination at a health care facility,Hypercholester olemia,Familial hypercholesterolemia due to heterozygous low density lipoprotein (LDL) receptor mutation,Acoustic neuroma ([facility] V24, [facility] V28),Tobacco use disorder,Uncomplicated asthma, unspecified asthma severity, unspecified whether persistent,Allergic rhinitis due to pollen, unspecified seasonality Inject 1 mL (140 mg total) under the skin every 14 (fourteen) days. Inject 140 mg into the skin every 14 days. 6 mL 3 024 Active budesonide-formoteroL (Symbicort) 160-4.5 mcg/actuation inhalerIndications:Mode rate persistent asthma without complication Inhale 2 puffs by mouth 2 (two) times a day. Rinse mouth with water after use to reduce aftertaste and incidence of candidiasis. Do not swallow. 1 each 12 024 2024 Active famotidine (PEPCID) 20 mg tabletIndications:Gastr oesophageal reflux disease, unspecified whether esophagitis present TAKE 1 TAB BY MOUTH 2 TIMES A DAY IF NEEDED FOR HEARTBURN. TAKE 1 TABLET BY MOUTH AT BEDTIME NEEDED FOR HEARTBURN. 30 tablet 3 024 Active naproxen (NAPROSYN) 500 mg tablet TAKE 1 TABLET BY MOUTH TWICE A DAY WITH MEALS 180 tablet 1 025 Active loratadine (CLARITIN) 10 mg tabletIndications:Gastr o-esophageal reflux disease without esophagitis TAKE 1 TABLET BY MOUTH EVERY DAY 90 tablet 3 025 Active eszopiclone (LUNESTA) 1 mg tablet Take 1 tablet (1 mg total) by mouth at bedtime as needed for sleep. Max Daily Amount: 1 mg 30 tablet 5 Active clindamycin (CLEOCIN T) 1 % gel Apply to face twice daily. 60 g 5 025 2025 Active diphenhydrAMINE (BenadryL) 25 mg capsule Take 1 capsule (25 mg total) by mouth every 6 (six) hours if needed for itching for up to 10 days. 30 capsule 025 Active tirzepatide, weight loss, (Zepbound) 7.5 mg/0.5 mL injectionIndications:Ob esity, unspecified class, unspecified obesity type, unspecified whether serious comorbidity present Inject 0.5 mL (7.5 mg total) under the skin every 7 (seven) days. 6 mL 3 025 Active Active Problems Problem Noted Date Diagnosed Date Hidradenitis 09/19/2024 Familial hypercholesterolemi a due to heterozygous low density lipoprotein (LDL) receptor mutation 05/06/2021 Hypercholesterolemia 04/22/2021 Overview (06/22/2023): Last Assessment & Plan: She has had a significant improvement in her lipid panel. This was last drawn 07/02 total cholesterol 182, HDL 48, LDL 93. Previous LDL was 250. She states she is seeing her PCP in the near future and is updating all her labs. Continue Repatha Tobacco use disorder 03/23/2017 Fibromyalgia 02/16/2017 Palpitations 02/04/2017 Insomnia 11/19/2016 Carpal tunnel syndrome on both sides 12/26/2015 Overview (06/22/2023): CTR ~ 2008 but some return of symptoms 2016 Periductal mastitis 03/23/2015 Acoustic neuroma ([facility] V24, [facility] V28) 11/12 Allergic rhinitis due to allergen 02/22/2014 Headache 11/29/2013 Asthma 11/29/2013 Encounters Date Type Department Care Team Description 10/03/2024 10:45 AM EDT - 10/03/2024 11:59 PM EDT Hospital Encounter Radiology Department - [address] [phone] Right leg pain; Hidradenitis; Preoperative cardiovascular examination; Age-related cataract of both eyes, unspecified age-related cataract type Discharge Disposition: Home or Self Care 10/03/2024 10:00 AM EDT Consult Adult Medicine [address] [phone] Jn Olson PA Preoperative cardiovascular examination (Primary Dx); Right leg pain; Hidradenitis; Age-related cataract of both eyes, unspecified age-related cataract type 09/23/2024 4:30 PM EDT Office Visit Adult Medicine [address] [phone] Roberto Adams MD Allergic reaction, initial encounter (Primary Dx) 09/19/2024 8:00 AM EDT Office Visit Adult [address] [phone] Jn Olson PA Hypercholesterolemia (Primary Dx); Familial hypercholesterolemia due to heterozygous low density lipoprotein (LDL) receptor mutation; Tobacco use disorder; Fibromyalgia; Hidradenitis; Need for vaccination against Streptococcus pneumoniae; Need for tetanus, diphtheria, and acellular pertussis (Tdap) vaccine from Last 3 Months Immunizations Name Administration Dates Next Due Pneumococcal conjugate 20 va lent (Prevnar 20, PCV 20) 2mo and older 09/19/2024 Pneumococcal polysaccharide 23 valent (Pneumovax 23) 2yo and older 03/23/2017 Tdap Tetanus diptheria acell ular pertussis (Boostrix; Adacel) 7yo and older 09/19/2024,10/25/2013 Surgical History Surgery Date Site/Laterality Comments TONSILLECTOMY PROCEDURE: HISTORICAL TONSILLECTOMY SINUS SURGERY PROCEDURE: AK UNLISTED PROCEDURE ACCESSORY SINUSES; COMMENT: septoplasty OTHER SURGICAL HISTORY PROCEDURE: AK EXCISION/CURTG BONE CYST/BENIGN TUMOR HUMERUS; COMMENT: non cancerous left arm ROTATOR CUFF REPAIR Left PROCEDURE: HISTORICAL ROTATOR CUFF REPAIR; COMMENT: Left SECTION PROCEDURE: HISTORICAL DELIVERY; COMMENT: X 2 CHOLECYSTECTOMY PROCEDURE: HISTORICAL CHOLECYSTECTOMY CARPAL TUNNEL RELEASE - 2007 Bilateral PROCEDURE: AK NEUROPLASTY &/TRANSPOS MEDIAN NRV CARPAL TUNNE; COMMENT: Bilateral APPENDECTOMY PROCEDURE: HISTORICAL APPENDECTOMY OOPHORECTOMY Left PROCEDURE: AK OOPHORECTOMY PARTIAL/TOTAL UNI/BI; COMMENT: tube and ovary OTHER SURGICAL HISTORY 2004 PROCEDURE: AK HYSTEROSCOPY ENDOMETRIAL ABLATION COLONOSCOPY 10/05/2014 PROCEDURE: HISTORICAL COLONOSCOPY; COMMENT: Poor preparation but otherwise normal to TI ESOPHAGOGASTRODUODENOSCOPY 10/05/2014 PROCEDURE: AK ESOPHAGOGASTRODUODENOSCOPY TRANSORAL DIAGNOSTIC; COMMENT: Antral Gastritis BREAST BIOPSY 2015 Right PROCEDURE: BX BREAST; PERC NEEDLE CORE W/IMAG GUID; COMMENT: b9 BREAST BIOPSY 2011 Left PROCEDURE: AK BX BREAST W/DEVICE 1ST LESION ULTRASOUND GUID; COMMENT: b0 BREAST SURGERY 04/18/2015 Left PROCEDURE: AK UNLISTED PROCEDURE BREAST; COMMENT: Left nipple terminal duct excision Medical History Medical History Date Comments Headache(784.0) 06/23/2005 DX:Headache(784. 0) Migraine DX:Migraine Asthma DX:Asthma Positive PPD DX:Positive PPD; COMMENT: Treated 2012 Periductal mastitis 03/23/2015 DX:Periducta l mastitis Carpal tunnel syndrome on both sides 12/26/2015 DX:Carpal tunnel syndrome on both sides; COMMENT: CTR - 2007 but some return of symtpoms 2015 Schwannoma 11/2015 DX:Schwannoma; C OMMENT: Brain Family History Medical History Relation Name Comments Breast cancer Aunt 1 maternal aunt- bilateral Breast cancer Aunt 2 unilateral-mat ernal aunt Lung cancer Aunt 3 smoke-paternal aunt Breast cancer Aunt 5 46 Colon cancer Brother 1 Arthritis Brother 2 aspiration pneumonia Father Arthritis Mother Cataracts Mother Breast cancer Other 1 maternal first cousin Other: ovarian cancer Other 2 matern al first cousin #1 Breast cancer Other 3 m 1sr cousin 48 Other: ovarian cancer Other 3 m 1sr cousin 48 mat ernal first cousin #2 Colon cancer Paternal Grandfather Other: pancreatic cancer Paternal Grandmother Colon cancer Uncle 1 paternal uncle Throat cancer Uncle 2 smoker Prostate cancer Uncle 3 paternal unc le Prostate cancer Uncle 4 no details-p aternal uncle Blindness Neg Hx Glaucoma Neg Hx Macular degeneration Neg Hx Strabismus Neg Hx Relation Name Status Comments Aunt 1 Aunt 2 Aunt 3 Aunt 4 Unknown Aunt 5 46 Brother 1 Alive Brother 2 Alive Father Maternal Grandfather Maternal Grandmother 70 Mother (Age 80) dm,htn Other 1 Other 2 Other 3 m 1sr cousin 48 Alive Paternal Grandfather Paternal Grandmother (Age 48) Br ain cancer Sister Alive crohns Son 1 Alive Son 2 Alive 5 open heart banda rgerys Uncle 1 Uncle 2 Uncle 3 Uncle 4 Social History Tobacco Use Types Packs/Day Years Used Date Smoking Tobacco: Every Day Cigarettes Smokeless Tobacco: Never Tobacco Cessation:Ready to Q uit: Not Asked; Counseling Given: Not Answered Comments:Smoke 12 cigaretes a day Alcohol Use Standard Drinks/Week Comments Yes 0 (1 standard drink = 0.6 oz pur e alcohol) rare Food Access & Nutrition Answer Date Rec orded Do you have access to a vari ety of food including fruits and vegetables? Yes 09/18/2024 Access to Healthcare Answer Date Record ed Within the last 3 months, ho w many times did you visit the emergency department for your medical care? 1 09/18/2024 Health Literacy Answer Date Recorded How often do you need to hav e someone help you when you read instructions, pamphlets, or other written material from your doctor or pharmacy? Never 09/18/2024 Caregiver: How often do you need to have someone help you when you read instructions, pamphlets, or other written material from your doctor or pharmacy? Not on file 09/18/2024 Financial Risk Answer Date Recorded How hard is it for you to pa y for the very basics like food, housing, medical care, and air conditioning / heating? Patient declined 09/18/2024 Transportation Answer Date Recorded Has the lack of transportati on kept you from meetings, work, or from getting things needed for daily living? No Has the lack of transportati on kept you from medical appointments or from getting medications? No 09/18/2024 Social Isolation Answer Date Recorded How often do you feel lonely or isolated from those around you? Sometimes 09/18/2024 Food Risk Answer Date Recorded Within the past 12 months we worried whether our food would run out before we got money to buy more. Never true 09/18/2024 Within the past 12 months th e food we bought just didn't last and we didn't have money to get more. Never true 09/18/2024 Dependent Care Answer Date Recorded Do you need help finding or paying for care for your loved ones. For example, early childhood education instructor or elderly care for an older adult? No 09/18/2024 Education Answer Date Recorded Do you think completing more education or training, like finishing a GED, going to college, or learning a trade, would be helpful for you? No 09/18/2024 Employment and Income Answer Date Recor ded During the last four weeks, have you been actively looking for work? No 09/18/2024 Living Situation Answer Date Recorded What is your living situation? 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 Not on file Not on file Not on file Obstetrics History Para Term AB IAB SAB Ectopic Multiple Livin g Live Births 2 2 2 2 Date Outcome GA Total Labor Labor/2nd/3rd Weight Sex Type Anes PTL Tiffani A1 A5 Name Clin Term Term Last Filed Vital Signs Vital Sign Reading Time Taken Comments Blood Pressure 94/66 10/03/2024 10:03 AM EDT Pulse 81 10/03/2024 10:03 AM EDT Temperature 36.4 C (97.6 F) 10/03/2024 10:03 AM EDT Respiratory Rate 15 10/03/2024 10:03 AM EDT Oxygen Saturation 99% 10/03/2024 10:03 AM EDT Inhaled Oxygen Concentration - - Weight 64.6 kg (142 lb 6.4 oz) 10/03/2024 10:03 AM EDT Height 152.4 cm (5') 10/03/2024 10:03 AM EDT Body Mass Index 27.81 10/03/2024 10:03 AM EDT Plan of Treatment Health Maintenance Due Date Last Done Comments Hepatitis B Vaccines (1 of 3 - 19+ 3-dose series) 01/12/1984 Zoster Vaccines (1 of 2) 2015 Cervical Cancer Screening: HPV 11/29/2018 11/29/2013 Colorectal Cancer Screening: Colonoscopy 10/05/2024 10/05/2014, 10/05/2014 COVID-19 Vaccine ( - season) 2024 Influenza Vaccine (#1) 2024 Social Influencers of Health Screening 09/18/2025 09/18/2024 Breast Cancer Screening 06/06/2026 06/06/19, 05/23/2024, 05/20/2023, Additional history exists Cholesterol Screening (Lipid Panel) 11/22/2029 11/22/2024, 05/23/2024, 02/02/2023 DTaP,Tdap,and Td Vaccines (3 - Td or Tdap) 09/19/2034 09/19/2024, 10/25/2013 RSV Immunization Adult Patients (1 - 1-dose 75+ series) 01/12/2040 Hepatitis C Screening Completed 08/15/2014 HIV Screening Completed 05/23/2024 Depression Screening Completed 09/18/2024, 11/09/19 Pneumococcal Vaccine: 50+ Years Completed 09/19/2024, 03/23/2017 HIB Vaccines Aged Out No longer eligi ble based on patient's age to complete this topic HPV Vaccines Aged Out No longer eligi ble based on patient's age to complete this topic Hepatitis A Vaccines Aged Out No long er eligible based on patient's age to complete this topic IPV Vaccines Aged Out No longer eligi ble based on patient's age to complete this topic MMR Vaccines Aged Out No longer eligi ble based on patient's age to complete this topic Meningococcal ACWY Vaccine Aged Out N o longer eligible based on patient's age to complete this topic Meningococcal B Vaccine Aged Out No l onger eligible based on patient's age to complete this topic RSV Immunization Patients Under 20 months Aged Out No longer eligible based on patient's age to complete this topic Varicella Vaccines Aged Out No longer eligible based on patient's age to complete this topic Procedures Procedure Name Priority Date/Time Associated Diagnosis Comments CBC WITH AUTO DIFFERENTIAL Routine 11/22/2024 3:04 PM EDT Allergic reaction, initial encounter LIPID PANEL WITH REFLEX TO DIRECT LDL Routine 11/22/2024 3:04 PM EDT Hypercholesterolemia Familial hypercholesterolemia due to heterozygous low density lipoprotein (LDL) receptor mutation Tobacco use disorder Fibromyalgia Hidradenitis Need for vaccination against Streptococcus pneumoniae Need for tetanus, diphtheria, and acellular pertussis (Tdap) vaccine COMPREHENSIVE METABOLIC PANEL Routine 11/22/2024 3:04 PM EDT Hypercholesterolemia Familial hypercholesterolemia due to heterozygous low density lipoprotein (LDL) receptor mutation Tobacco use disorder Fibromyalgia Hidradenitis Need for vaccination against Streptococcus pneumoniae Need for tetanus, diphtheria, and acellular pertussis (Tdap) vaccine CBC AND DIFFERENTIAL Routine 11/22/2024 3:04 PM EDT Allergic reaction, initial encounter US EXTREMITY NONVASCULAR LIMITED RIGHT Routine 10/03/2024 10:57 AM EDT Right leg pain Hidradenitis Preoperative cardiovascular examination Age-related cataract of both eyes, unspecified age-related cataract type MG MAMMO DIGITAL DIAGNOSTIC W GONZALO LEFT Routine 06/06/2024 2:58 PM EST Abnormal mammogram HIV 1, 2 ANTIBODY, P24 ANTIGEN WITH REFLEX TO DIFFERENTIATION Routine 05/23/2024 9:52 AM EST Routine general medical examination at a [facility] care facility Hypercholesterolemia Familial hypercholesterolemia due to heterozygous low density lipoprotein (LDL) receptor mutation Acoustic neuroma ([facility] V24, [facility] V28) Tobacco use disorder Uncomplicated asthma, unspecified asthma severity, unspecified whether persistent Allergic rhinitis due to pollen, unspecified seasonality HM DEPRESSION SCREENING Routine 11/09/2023 COLONOSCOPY Routine 10/05/2014 HEPATITIS C SCREENING Routine 08/15/2014 HM HPV Routine 11/29/2013 from Last 3 Months or Most Recently Relevant to Health Maintenance Results * (ABNORMAL) Lipid panel with reflex to direct LDL (11/22/2024 3:04 PM EDT) Cholesterol 283(H) 0 - 200 mg/dL LAB CHEMISTRY METHOD 11/22/2024 6:35 PM EDT [facility] Triglycerides 268(H) 0 - 150 mg/dL LAB CHEMISTRY METHOD 11/22/2024 6:35 PM EDT [facility] HDL 56 >=40 mg/dL LAB CHEMISTRY METHOD 11/22/2024 6:35 PM EDT [facility] LDL Calculated 173(H) 0 - 100 mg/dL LAB CHEMISTRY METHOD 11/22/2024 6:35 PM EDT [facility] Comment:Estimated LDL Calcul ated using equation: Total cholesterol - HDL cholesterol - (Triglycerides/5) VLDL Cholesterol Shayan 53.6 mg/dL LAB CHEMISTRY METHOD 11/22/2024 6:35 PM EDT [facility] Non HDL Chol. (LDL+VLDL) 227(H) <145 mg/dL LAB CHEMISTRY METHOD 11/22/2024 6:35 PM EDT [facility] Chol/HDL Ratio 5.1(H) 0.0 - 4.4 LAB CHEMISTRY METHOD 11/22/2024 6:35 PM EDT [facility] Blood Venous blood specimen / Unknown Venipuncture / Unknown 11/22/2024 3:04 PM EDT 11/22/2024 3:04 PM EDT Jn PEDRO LAB BLOOD ORDERABLES Lana l Result [facility] [address] [place] [address], * (ABNORMAL) CBC auto differential (11/22/2024 3:04 PM EDT) WBC 8.7 4.8 - 10.8 K/mcL LAB HEMETOLOGY METHOD 11/22/2024 5:13 PM [facility] RBC 4.10 3.80 - 4.80 M/mcL LAB HEMETOLOGY METHOD 11/22/2024 5:13 PM [facility] Hemoglobin 13.6 11.5 - 16.0 g/dL LAB HEMETOLOGY METHOD 11/22/2024 5:13 PM [facility] Hematocrit 41.6 35.0 - 47.0 % LAB HEMETOLOGY METHOD 11/22/2024 5:13 PM [facility] MCV 101.7(H) 79.0 - 98.0 FL LAB HEMETOLOGY METHOD 11/22/2024 5:13 PM [facility] MCH 33.3(H) 27.0 - 32.0 pcg LAB HEMETOLOGY METHOD 11/22/2024 5:13 PM [facility] MCHC 32.7 32.0 - 37.0 g/dL LAB HEMETOLOGY METHOD 11/22/2024 5:13 PM [facility] RDW 12.8 11.0 - 15.0 % LAB HEMETOLOGY METHOD 11/22/2024 5:13 PM [facility] Platelets 273 130 - 400 K/mcL LAB HEMETOLOGY METHOD 11/22/2024 5:13 PM [facility] MPV 9.3 7.0 - 11.0 FL LAB HEMETOLOGY METHOD 11/22/2024 5:13 PM [facility] NRBC 0.0 <1.0 % LAB HEMETOLOGY METHOD 11/22/2024 5:13 PM [facility] NRBC Absolute 0.00 <0.10 K/mcL LAB HEMETOLOGY METHOD 11/22/2024 5:13 PM [facility] Neutrophils Relative 55.0 % LAB HEMETOLOGY METHOD 11/22/2024 5:13 PM [facility] Lymphocytes Relative 32.6 % LAB HEMETOLOGY METHOD 11/22/2024 5:13 PM EDT [facility] Monocytes Relative 4.0 % LAB HEMETOLOGY METHOD 11/22/2024 5:13 PM [facility] Eosinophils Relative 7.5 % LAB HEMETOLOGY METHOD 11/22/2024 5:13 PM EDT [facility] Basophils Relative 0.8 % [facility]24 [facility] Immature Granulocytes Relative 0.1 % [facility]EMETOLOGY [facility]2024 5:[facility] Neutrophils Absolute 4.78 1.50 - 7.00 K/mcL LAB HEMETOLOGY METHOD [facility]/22[facility]2024 5:[facility] Lymphocytes Absolute 2.83 1.00 - 5.00 K/mcL LAB HEMETOLOGY METHOD 11[facility]22[facility]2024 5:[facility] Monocytes Absolute 0.35 0.20 - 1.00 K/mcL LAB HEMETOLOGY METHOD 11/22/2024 5:13 PM [facility] Eosinophils Absolute 0.65(H) 0.00 - 0.50 K/mcL LAB HEMETOLOGY METHOD 11/22/2024 5:13 PM EDT [facility] Basophils Absolute 0.07 0.00 - 0.20 K/mcL LAB HEMETOLOGY METHOD 11/22/2024 5:13 PM [facility] Immature Granulocytes Absolute 0.01 0.00 - 0.03 K/mcL LAB HEMETOLOGY METHOD 11/22/2024 5:13 PM [facility] Blood Venous blood specimen / Unknown Venipuncture / Unknown 11/22/2024 3:04 PM EDT 11/22/2024 3:04 PM EDT us Roberto Adams MD LAB BLOOD ORDERABLES Final Resu lt [facility] [address] [place] [address], * Comprehensive metabolic panel (11/22/2024 3:04 PM EDT) Sodium 139 133 - 145 mmol/L LAB CHEMISTRY [facility]24 6[facility] Potassium 3.8 3.5 - 5.5 mmol/L LAB CHEMISTRY METHOD 11/22/2024 6:31 PM [facility] Chloride 109 96 - 110 mmol/L LAB CHEMISTRY METHOD 11/22/2024 6:31 PM [facility] CO2 25 21 - 32 mmol/L LAB CHEMISTRY METHOD 11/22/2024 6:31 PM [facility] Anion Gap 5 3 - 11 LAB CHEMISTRY METHOD 11/22/2024 6:31 PM [facility] Glucose 88 70 - 100 mg/dL LAB CHEMISTRY METHOD 11/22/2024 6:31 PM [facility] BUN 12 5 - 25 mg/dL LAB CHEMISTRY METHOD 11/22/2024 6:31 PM [facility] Creatinine 0.93 0.50 - 1.10 mg/dL LAB CHEMISTRY METHOD 11/22/2024 6:31 PM [facility] eGFR 71 >=60 mL/min/1. 73m2 LAB CHEMISTRY METHOD 11/22/2024 6:31 PM [facility] Comment:Calculation based on the Chronic Kidney Disease Epidemiology Collaboration (CKD-EPI) equation refit without adjustment for race. BUN/Creatinine Ratio 12.9 LAB CHEMISTRY METHOD 11/22/2024 6:31 PM [facility] Calcium 9.5 8.5 - 10.5 mg/dL LAB CHEMISTRY METHOD 11/22/2024 6:31 PM EDT [facility] AST (SGOT) 14 10 - 42 unit/L LAB CHEMISTRY METHOD 11/22/2024 6:31 PM EDT [facility] ALT (SGPT) 28 10 - 60 unit/L LAB CHEMISTRY METHOD 11/22/2024 6:31 PM EDT [facility] Alkaline Phosphatase 97 42 - 121 unit/L LAB CHEMISTRY METHOD 11/22/2024 6:31 PM EDT [facility] Total Protein 7.1 6.0 - 8.0 g/dL LAB CHEMISTRY METHOD 11/22/2024 6:31 PM EDT [facility] Albumin 4.6 3.2 - 5.0 g/dL LAB CHEMISTRY METHOD 11/22/2024 6:31 PM EDT [facility] Total Bilirubin 0.4 0.0 - 1.4 mg/dL LAB CHEMISTRY METHOD 11/22/2024 6:31 PM EDT [facility] Blood Venous blood specimen / Unknown Venipuncture / Unknown 11/22/2024 3:04 PM EDT 11/22/2024 3:04 PM EDT Jn PEDRO LAB BLOOD ORDERABLES Lana l Result [facility] [address] [place] [address], * US Extremity Nonvascular Limited Right (10/03/2024 10:57 AM EDT) Anatomical Region Laterality Modality Extremity Right Ultrasound 10/03/2024 12:1 5 PM EDT Impressions 10/03/2024 12:16 PM EDT No sonographic abnormality to accounts for the palpable concern in the right thigh. -------- FINAL REPORT -------- Dictated By: Hunter Tyler Dictated Date: 10/03/2024 12:15 ET Assigned Physician: Hunter Tyler Reviewed and Electronically Signed By: Hunter Tyler Signed Date: 10/03/2024 12:16 ET Workstation ID: [id number] Transcribed By: Self Edit Transcribed Date: 10/03/2024 12:15 ET Narrative 10/03/2024 12:16 PM EDT US EXTREMITY NONVASCULAR LIMITED RIGHT COMPARISON: None HISTORY: Upper leg pain, stress fracture suspected, neg xray right leg pain possible lipomas FINDINGS: Targeted ultrasound was performed at the location of the palpable concern as indicated by the patient along the lateral aspect of the right side. No sonographic abnormalities seen. Procedure Note Hunter Tyler MD - 10/03/2024 US EXTREMITY NONVASCULAR LIMITED RIGHT COMPARISON: None HISTORY: Upper leg pain, stress fracture suspected, neg xray right leg pain possible lipomas FINDINGS: Targeted ultrasound was performed at the location of the palpable concernas indicated by the patient along the lateral aspect of the right side. Nosonographic abnormalities seen. IMPRESSION: No sonographic abnormality to accounts for the palpable concern in theright thigh. -------- FINAL REPORT -------- Dictated By: Hunter Tyler Dictated Date: 10/03/2024 12:15 ET Assigned Physician: Hunter Tyler Reviewed and Electronically Signed By: Hunter Tyler Signed Date: 10/03/2024 12:16 ET Workstation ID: [id number] Transcribed By: Self Edit Transcribed Date: 10/03/2024 12:15 ET us Jn PEDRO IMHugo US PROCEDURES Final R esult * MG Mammo Digital Diagnostic w Gonzalo Left (06/06/2024 2:58 PM EST) Anatomical Region Laterality Modality Breast Left Mammography 06/06/2024 3:43 PM EST Impressions 06/06/2024 3:48 PM EST Very small cysts correspond with the mammographic abnormalities. No further workup needed. Routine annual screening mammography recommended. BREAST DENSITY: B - There are scattered areas of fibroglandular density. BI-RADS CATEGORY: 2 - BENIGN RECOMMENDATION: Screening left mammogram is recommended in 1 year. MAMMO LOCATION: [facility], [address] [place] [address], [id number], . -------- FINAL REPORT -------- Dictated By: Sandra Kline Dictated Date: 06/06/2024 15:43 ET Assigned Physician: Sandra Kline Reviewed and Electronically Signed By: Sandra Kline Signed Date: 06/06/2024 15:48 ET Workstation ID: [id number] Transcribed By: Self Edit Transcribed Date: 06/06/2024 15:43 ET Narrative 06/06/2024 3:48 PM EST EXAM: MG MAMMO DIGITAL DIAGNOSTIC W GONZALO LEFT, US BREAST LIMITED LEFT HISTORY: Call back from a screening mammogram. FINDINGS: Spot compression MLO and CC views performed with tomosynthesis. 2 adjacent circumscribed lesions persist in the upper periareolar left breast at the 12 o'clock position measuring up to 5 mm. Targeted sonography was subsequently performed showing 2 cysts at the 12 o'clock position. The larger cyst measures 0.5 x 0.5 x 0.3 cm, 2 cm from the nipple, and the smaller cyst measures 0.3 x 0.3 x 0.2 cm, 1 cm from the nipple. Procedure Note Sandra Kline MD - 06/06/2024 EXAM: MG MAMMO DIGITAL DIAGNOSTIC W GONZALO LEFT, US BREAST LIMITED LEFT HISTORY: Call back from a screening mammogram. FINDINGS: Spot compression MLO and CC views performed with tomosynthesis. 2adjacent circumscribed lesions persist in the upper periareolar leftbreast at the 12 o'clock position measuring up to 5 mm. Targeted sonography was subsequently performed showing 2 cysts at the 12o'clock position. The larger cyst measures 0.5 x 0.5 x 0.3 cm, 2 cm fromthe nipple, and the smaller cyst measures 0.3 x 0.3 x 0.2 cm, 1 cm fromthe nipple. IMPRESSION: Very small cysts correspond with the mammographic abnormalities. Nofurther workup needed. Routine annual screening mammographyrecommended. BREAST DENSITY: B - There are scattered areas of fibroglandular density. BI-RADS CATEGORY: 2 - BENIGN RECOMMENDATION: Screening left mammogram is recommended in 1 year. MAMMO LOCATION: [facility], [address] [place] [address], [id number], . -------- FINAL REPORT -------- Dictated By: Sandra Kline Dictated Date: 06/06/2024 15:43 ET Assigned Physician: Sandra Kline Reviewed and Electronically Signed By: Sandra Kline Signed Date: 06/06/2024 15:48 ET Workstation ID: [id number] Transcribed By: Self Edit Transcribed Date: 06/06/2024 15:43 ET Jn PEDRO IMG BI PROCEDURES Final R esult * HIV 1,2 antibody, p24 antigen with reflex to differentiation (05/23/2024 9:52 AM EST) [facility] HIV Combo AB/AG Negative Negative LAB CHEMISTRY METHOD 05/23/2024 3:47 PM EST [facility] Blood Venous blood specimen / Unknown Venipuncture / Unknown 05/23/2024 9:52 AM EST 05/23/2024 9:52 AM EST Narrative [facility] - 05/23/2024 3:47 PM EST This assay is a 4th generation assay allowing for earlier detection of HIV infection by detecting the presence of the HIV-1 p24 antigen as well as the traditional antibodies to HIV type 1 (including group O) and type 2. Use of a 4th generation assay is the current CDC recommendation for HIV screening. Jn PEDRO LAB BLOOD ORDERABLES Lana l Result [facility] [address] [place] [address], * Depression Screening (11/09/2023) [facility] Depression Screening abstracted Historical Provider HEALTH MAINTENANCE Final Result * Colonoscopy (10/05/2014) [facility] Colonoscopy no interpretation , abstracted Anatomical Region Laterality Modality Other Historical Provider HEALTH MAINTENANCE Final Result * Hepatitis C Screening (08/15/2014) Pathologist [facility] Hepatitis C Screening abstracted Historical Provider HEALTH MAINTENANCE Final Result * Cervical Cancer Screening: HPV (11/29/2013) Pathologist [facility] Cervical Cancer Screening: HPV normal, abstracted Historical Provider HEALTH MAINTENANCE Final Result from Last 3 Months or Most Recently Relevant to Health Maintenance Insurance [facility] Advance Directives Documents on File Type Date Recorded 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
--- OUTSIDE RECORDS SUMMARY | 2024-12-18 08:38 | XMS_ITS ---
[facility] Organization [facility] Care Team Organization Name Specialty Phone Email Start Date End Da te [facility]n [facility] 02/18/2022
[2024-12-18 09:34] LABS: Appearance Urine Clear; Glucose Urine UA Negative (Negative); PH 8.5 (5.0-9.0); Specific Gravity - Urine 1.015 (1.005-1.025)
[2024-12-18 10:19] VITALS: BP 107/44; PULSE 68; RESP 16; O2SAT 95
[2024-12-18 11:12] VITALS: BP 107/44; PULSE 68; RESP 16; TEMP -17.7; TEMP 0; O2SAT 95
== END 2024-12-18 11:15 | disposition home or self-care (01) ==
PROVIDERS: Emergency Provider Emergency Medicine; PCP Physician Assistant Medical
DX: R42 Dizziness and giddiness (principal); R11.2 Nausea with vomiting, unspecified; R20.0 Anesthesia of skin; R94.31 Abnormal electrocardiogram [ECG] [EKG]; R51.9 Headache, unspecified; F17.210 Nicotine dependence, cigarettes, uncomplicated; Z79.899 Other long term (current) drug therapy
CPT/HCPCS: 36415; 70450; 80053; 81003; 85025; 86140; 93005; 96361; 96374; 96375; 99284; 99285; J0131; J1885; J2405; J2919; J3360

== ENCOUNTER → 2024-12-18 07:31 | Outpatient (BNV) | payer OTHER, SELFPAY | PROVIDERS: Emergency Provider Emergency Medicine; PCP Physician Assistant Medical; Visit Provider Internal Medicine Cardiovascular Disease | DX: R94.31 Abnormal electrocardiogram [ECG] [EKG] (principal); R53.1 Weakness | CPT/HCPCS: 93010 ==

== ENCOUNTER → 2024-12-18 07:31 | Outpatient (BNV) | payer OTHER, SELFPAY | PROVIDERS: Emergency Provider Emergency Medicine; PCP Physician Assistant Medical; Visit Provider Radiology Diagnostic Radiology | DX: R51.9 Headache, unspecified (principal) | CPT/HCPCS: 70450 ==